=== PATIENT | female | born 1970 | race Caucasian/White ===

== ENCOUNTER 2018-05-24 12:37 | Emergency (ER) | payer BC ==
[2018-05-24 13:11] VITALS: BP 125/57
--- NOTE | 2018-05-24 13:22 | EDM.PDOC ---
ED HPI GENERAL MEDICAL PROBLEM - General Chief Complaint: Genitourinary Problem Stated Complaint: POSSIBLE KIDNEY INFECTION Time Seen by Provider: 05/24/18 13:00 Source of Information: Reports: Patient, Provider History Limitations: Reports: No Limitations - History of Present Illness INITIAL COMMENTS - FREE TEXT/NARRATIVE: 48-year-old female who woke up with flank pain this morning, went over to the clinic and was sent over to the emergency room. She did have a UA prior to being sent over that showed mild bacteria and WBCs present. No fevers or chills , some nausea and vomiting yesterday. Onset: Unknown/Unsure (Symptoms were present this morning when she woke up) Quality: Reports: Sharp, Stabbing Severity: Moderate Associated Symptoms: Reports: Other (Mild dysuria and urgency). Denies: Fever/ Chills, Shortness of Breath Bilateral Lower Back Pain Score (Numeric/FACES): 10 - Related Data Allergies Allergy/AdvReac Type Severity Reaction Status Date / Time cephalexin monohydrate Allergy Rash Verified 06/12/16 20:21 [From Keflex] doxycycline Allergy Hives Verified 06/12/16 20:21 Latex, Natural Rubber Allergy Rash Verified 06/12/16 20:21 morphine Allergy Rash Verified 06/12/16 20:21 Penicillins Allergy Rash Verified 06/12/16 20:21 tape Allergy Rash Uncoded 06/12/16 20:21 Home Meds: Home Meds Citalopram [Citalopram Hbr] 40 mg PO DAILY 05/14/13 [History] Multivitamin [Multivitamins] 1 each PO DAILY 05/14/13 [History] Spironolactone [Aldactone] 50 mg PO BID 05/14/13 [History] Aspirin 81 mg PO DAILY 05/24/18 [History] Ca Carbonate/Vitamin D3/Vit K [Calcium + D Soft Chewable Tab] 1 tab PO DAILY [History] Cyanocobalamin (Vitamin B12) [Vitamin B12] 1,000 mcg SL DAILY 05/24/18 [History] Multivitamin/Iron/Folic Acid [Centrum Adults Tablet] 1 tab PO DAILY 05/24/18 [ History] Triamcinolone Acetonide [Triamcinolone Acetonide 0.5%] 1 applic TOP DAILY PRN [History] Varenicline [Chantix] 1 tab PO DAILY 05/24/18 [History] Vitamin B Complex [B Complex] 1 tab PO DAILY 05/24/18 [History] Zolpidem Tartrate 10 mg PO BEDTIME 05/24/18 [History] atorvaSTATin [Lipitor] 10 mg PO BEDTIME 05/24/18 [History] metFORMIN HCl [Metformin HCl] 1,000 mg PO BID 05/24/18 [History] Past Medical History Other HEENT History: mass left side of face Cardiovascular History: Reports: Other (See Below) Other Cardiovascular History: born with enlarged heart Respiratory History: Reports: Sleep Apnea Gastrointestinal History: Reports: Gastritis Genitourinary History: Reports: Other (See Below) Other Genitourinary History: May 2011 hospitalized for kidney infection [employer] History: Reports: Polycystic Ovaries, Musculoskeletal History: Reports: Arthritis Neurological History: Reports: Migraines Other Neuro History: pinched right sciatic nerve Psychiatric History: Reports: Depression Endocrine/Metabolic History: Reports: Diabetes, Type II, Obesity/BMI 30+ Oncologic (Cancer) History: Reports: Other (See Below) Other Oncologic History: benign tumors removed from bilat neck - Infectious Disease History Infectious Disease History: Reports: Chicken Pox - Past Surgical History Cardiovascular Surgical History: Reports: None Respiratory Surgical History: Reports: None GI Surgical History: Reports: Appendectomy, Cholecystectomy, EGD Female Surgical History: Reports: Section, Hysterectomy, Salpingo- Oophorectomy Endocrine Surgical History: Reports: None Neurological Surgical History: Reports: None Musculoskeletal Surgical History: Reports: Carpal Tunnel Oncologic Surgical History: Reports: None Dermatological Surgical History: Reports: None Social & Family History - Tobacco Use Smoking Status *Q: Former Smoker Used Tobacco, but Quit: Yes Month/Year Tobacco Last Used: 03/27/2018 - Caffeine Use Caffeine Use: Reports: None - Recreational Drug Use Recreational Drug Use: No ED ROS GENERAL - Review of Systems Review Of Systems: See Below Constitutional: Reports: Malaise. Denies: Fever, Chills Respiratory: Denies: Shortness of Breath Cardiovascular: Denies: Chest Pain GI/Abdominal: Reports: Nausea : Reports: Flank Pain, Frequency, Urgency Musculoskeletal: Reports: Back Pain Skin: Reports: No Symptoms Neurological: Reports: No Symptoms Psychiatric: Reports: No Symptoms ED EXAM, GENERAL - Physical Exam Exam: See Below Exam Limited By: No Limitations General Appearance: Alert, Mild Distress Eye Exam: Bilateral Eye: Normal Inspection Head: Atraumatic Respiratory/Chest: No Respiratory Distress, Lungs Clear Cardiovascular: Regular Rate, Rhythm Back Exam: CVA Tenderness (R), CVA Tenderness (L), Paraspinal Tenderness Neurological: Alert, Oriented Psychiatric: Anxious Skin Exam: Warm, Dry Course - Vital Signs Last Recorded V/S: Last Vital Signs Temp 97.7 F 05/24/18 13:10 Pulse 75 05/24/18 13:10 Resp 20 05/24/18 13:10 BP 125/57 L 05/24/18 13:10 Pulse Ox 96 05/24/18 13:10 - Re-Assessments/Exams Free Text/Narrative Re-Assessment/Exam: 05/24/18 14:47 CT of the abdomen and pelvis was negative for acute findings. She'll be placed on Macrobid twice a day for the next 7 days and given 10 hydrocodone for extra pain control. A note for work tomorrow so she can stay home, rest, stay hydrated , and she should recheck in 2-3 days if not improving satisfactorily. Departure - Departure Time of Disposition: 14:50 Disposition: Home, Self-Care 01 Condition: Good Clinical Impression: UTI, Urinary tract infectious disease, Bilateral flank pain - Discharge Information Instructions: Urinary Tract Infection, Adult Referrals: Glenny Norton RN [Primary Care Provider] - Forms: ED Department Discharge Care Plan Goals: Take antibiotic twice daily, a regular dose of anti-inflammatory should help and add stronger pain medication as prescribed if needed. Consider rechecking in 2-3 days if not improving satisfactorily. Return sooner if worsening such as fever or increased pain despite medications.
--- NOTE | 2018-05-24 14:21 | CT ---
Abdomen Pelvis wo Cont CLINICAL HISTORY: Bilateral flank pain COMPARISON: 2016. TECHNIQUE: Axial tomographic images are obtained from the dome of the diaphragm to the pubic symphysis without IV contrast enhancement. No oral contrast was used. Auto dosage reduction and iterative reconstruction techniques employed. FINDINGS: The lung bases are clear. The liver is enlarged. There is diffuse fatty infiltration. The gallbladder has been removed. The spleen has a normal size and shape. The pancreas shows no mass or inflammatory change. The adrenal glands appear normal bilaterally. The kidneys are free of stones or hydronephrosis. The ureters have a normal course and caliber. The bladder is mildly distended. The aorta has a normal contour. There is no suspicious retroperitoneal adenopathy. The appendix is not definitively identified. IMPRESSION: Hepatomegaly with diffuse fatty infiltration Previous cholecystectomy No urinary stones or hydronephrosis
== END 2018-05-24 14:50 | disposition home or self-care (01) ==
LOC: JP.ED 12:37
DX: N39.0 Urinary tract infection, site not specified (principal); E11.9 Type 2 diabetes mellitus without complications; F32.9 Major depressive disorder, single episode, unspecified; Z88.1 Allergy status to other antibiotic agents; Z91.040 Latex allergy status; Z88.0 Allergy status to penicillin; Z88.5 Allergy status to narcotic agent; Z91.048 Other nonmedicinal substance allergy status; Z79.82 Long term (current) use of aspirin; Z79.899 Other long term (current) drug therapy; Z79.84 Long term (current) use of oral hypoglycemic drugs; Z87.891 Personal history of nicotine dependence
CPT/HCPCS: 74176; 74176-26; 99284-25

== ENCOUNTER 2018-07-17 17:22 | Emergency (ER) | payer BC ==
[2018-07-17 17:42] VITALS: BP 149/81
[2018-07-17] MEDS ORDERED: Ketorolac 30 MG/ML SDV IVPUSH ONE (18:11)
[2018-07-17] MEDS ORDERED: Ondansetron 4 MG/2 ML SDV IVPUSH ONE (18:11)
[2018-07-17] MEDS ORDERED: Sodium Chloride 0.9% 10 ML Syringe FLUSH PRN (18:12)
[2018-07-17] MEDS ORDERED: diphenhydrAMINE 50 MG/ML SDV IVPUSH ONE (18:12)
[2018-07-17] MEDS ORDERED: Sodium Chloride 0.9% 1,000 ML IV SCH (18:15)
[2018-07-17] MEDS ORDERED: Haloperidol Lactate 5 MG/ML SDV IVPUSH ONE (19:19)
[2018-07-17] MEDS ORDERED: Dexamethasone 4 MG/ML SDV IVPUSH ONE (19:19)
--- NOTE | 2018-07-17 20:43 | EDM.PDOC ---
ED HPI GENERAL MEDICAL PROBLEM - General Chief Complaint: Headache Stated Complaint: MIGRAINE Time Seen by Provider: 07/17/18 18:04 Source of Information: Reports: Patient, RN Notes Reviewed History Limitations: Reports: No Limitations - History of Present Illness INITIAL COMMENTS - FREE TEXT/NARRATIVE: 40-year-old female presents emergency department day complaint of headache, she has a known history of cluster headaches which usually tries to control with Imitrex on successful this time she has had daily headaches for the past couple of weeks she has no other functional complaints other than photophobia and nausea Left Frontal Headache Pain Score (Numeric/FACES): 10 - Related Data Allergies Allergy/AdvReac Type Severity Reaction Status Date / Time cephalexin monohydrate Allergy Rash Verified 07/17/18 17:48 [From Keflex] Latex, Natural Rubber Allergy Rash Verified 07/17/18 17:48 morphine Allergy Rash Verified 07/17/18 17:48 Penicillins Allergy Rash Verified 07/17/18 17:48 tape Allergy Rash Uncoded 07/17/18 17:48 Home Meds: Home Meds Citalopram [Citalopram Hbr] 40 mg PO DAILY 05/14/13 [History] Spironolactone [Aldactone] 50 mg PO BID 05/14/13 [History] Aspirin 81 mg PO DAILY 05/24/18 [History] Ca Carbonate/Vitamin D3/Vit K [Calcium + D Soft Chewable Tab] 1 tab PO DAILY [History] Cyanocobalamin (Vitamin B12) [Vitamin B12] 1,000 mcg SL DAILY 05/24/18 [History] Triamcinolone Acetonide [Triamcinolone Acetonide 0.5%] 1 applic TOP DAILY PRN [History] Varenicline [Chantix] 1 tab PO DAILY 05/24/18 [History] Vitamin B Complex [B Complex] 1 tab PO DAILY 05/24/18 [History] Zolpidem Tartrate 10 mg PO BEDTIME 05/24/18 [History] atorvaSTATin [Lipitor] 10 mg PO BEDTIME 05/24/18 [History] metFORMIN HCl [Metformin HCl] 1,000 mg PO BID 05/24/18 [History] Prenat Vit Comb.10/Iron/Fa/Dha [Vitafol-OB + DHA] 1 each PO BID 07/17/18 [ History] Past Medical History Other HEENT History: mass left side of face Cardiovascular History: Reports: Other (See Below) Other Cardiovascular History: born with enlarged heart Respiratory History: Reports: Sleep Apnea Gastrointestinal History: Reports: Gastritis Genitourinary History: Reports: Other (See Below) Other Genitourinary History: May 2011 hospitalized for kidney infection [employer] 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 History: Reports: Polycystic Ovaries, Musculoskeletal History: Reports: Arthritis Neurological History: Reports: Migraines (Cluster type) Other Neuro History: pinched right sciatic nerve Psychiatric History: Reports: Depression Endocrine/Metabolic History: Reports: Diabetes, Type II, Obesity/BMI 30+ Oncologic (Cancer) History: Reports: Other (See Below) Other Oncologic History: benign tumors removed from bilat neck - Infectious Disease History Infectious Disease History: Reports: Chicken Pox - Past Surgical History Cardiovascular Surgical History: Reports: None Respiratory Surgical History: Reports: None GI Surgical History: Reports: Appendectomy, Cholecystectomy, EGD Female Surgical History: Reports: Section, Hysterectomy, Salpingo- Oophorectomy Endocrine Surgical History: Reports: None Neurological Surgical History: Reports: None Musculoskeletal Surgical History: Reports: Carpal Tunnel Oncologic Surgical History: Reports: None Dermatological Surgical History: Reports: None Social & Family History - Tobacco Use Smoking Status *Q: Former Smoker Used Tobacco, but Quit: Yes Month/Year Tobacco Last Used: 2017 - Caffeine Use Caffeine Use: Reports: Coffee, Soda - Recreational Drug Use Recreational Drug Use: No ED ROS GENERAL - Review of Systems Review Of Systems: See Below Constitutional: Reports: No Symptoms. Denies: Fever Neurological: Reports: Headache - Physical Exam Exam: See Below Exam Limited By: No Limitations General Appearance: Alert, WD/WN, No Apparent Distress Eye Exam: Bilateral Eye: EOMI, Normal Fundi, PERRL Respiratory/Chest: No Respiratory Distress Course - Vital Signs Last Recorded V/S: Last Vital Signs Temp 97.7 F 07/17/18 17:48 Pulse 79 07/17/18 17:48 Resp 16 07/17/18 17:48 BP 149/81 H 07/17/18 17:48 Pulse Ox 96 07/17/18 17:48 - Orders/Labs/Meds Orders: Active Orders 24 hr Category Date Time Status Peripheral IV Care [RC] . DIRECTED Care 07/17/18 18:12 Active Sodium Chloride 0.9% [Normal Saline] 1,000 ml Med 07/17/18 18:15 Active IV ASDIRECTED Sodium Chloride 0.9% [Saline Flush] Med 07/17/18 18:12 Active 10 ml FLUSH ASDIRECTED PRN Peripheral IV Insertion Adult [OM.PC] Urgent Oth 07/17/18 18:11 Ordered Medication Orders Sodium Chloride (Normal Saline) 1,000 mls @ 999 mls/hr IV ASDIRECTED RICHARD Last Admin: 07/17/18 18:31 Dose: 999 mls/hr Sodium Chloride (Saline Flush) 10 ml FLUSH ASDIRECTED PRN PRN Reason: Keep Vein Open Last Admin: 07/17/18 18:34 Dose: 10 ml Meds: Medications Generic Name Dose Route Start Last Admin Trade Name Freq PRN Reason Stop Dose Admin Sodium Chloride 1,000 mls @ 999 mls/hr 07/17/18 18:15 07/17/18 18:31 Normal Saline IV 999 mls/hr ASDIRECTED RICHARD Administration Sodium Chloride 10 ml 07/17/18 18:12 07/17/18 18:34 Saline Flush FLUSH 10 ml ASDIRECTED PRN Administration Keep Vein Open Discontinued Medications Generic Name Dose Route Start Last Admin Trade Name Freq PRN Reason Stop Dose Admin Dexamethasone 4 mg 07/17/18 19:19 07/17/18 19:55 Dexamethasone IVPUSH 07/17/18 19:20 4 mg ONETIME ONE Administration Diphenhydramine HCl 25 mg 07/17/18 18:12 07/17/18 18:33 Benadryl IVPUSH 07/17/18 18:13 25 mg ONETIME ONE Administration Haloperidol Lactate 5 mg 07/17/18 19:19 07/17/18 19:55 Haldol IVPUSH 07/17/18 19:20 5 mg ONETIME ONE Administration Valproic Acid 500 mg/ Sodium 55 mls @ 50 mls/hr 07/17/18 19:19 07/17/18 19:56 Chloride IV 07/17/18 20:18 50 mls/hr ONETIME ONE Administration Ketorolac Tromethamine 30 mg 07/17/18 18:11 07/17/18 18:32 Toradol IVPUSH 07/17/18 18:12 30 mg ONETIME ONE Administration Ondansetron HCl 4 mg 07/17/18 18:11 07/17/18 18:32 Zofran IVPUSH 07/17/18 18:12 4 mg ONETIME ONE Administration Departure - Departure Time of Disposition: 20:42 Disposition: Home, Self-Care 01 Condition: Fair Clinical Impression: Cluster headache syndrome - Discharge Information Referrals: Glenny Norton RN [Primary Care Provider] - Additional Instructions: Continue with your regular medications, recommend follow-up with your primary care and discussion for consultation with neurology, call return to the emergency department worsening of symptoms - My Orders Last 24 Hours: My Active Orders 07/17/18 18:11 Peripheral IV Insertion Adult [OM.PC] Urgent 07/17/18 18:12 Peripheral IV Care [RC] . DIRECTED Sodium Chloride 0.9% [Saline Flush] 10 ml FLUSH ASDIRECTED PRN 07/17/18 18:15 Sodium Chloride 0.9% [Normal Saline] 1,000 ml IV ASDIRECTED - Assessment/Plan Last 24 Hours: My Active Orders 07/17/18 18:11 Peripheral IV Insertion Adult [OM.PC] Urgent 07/17/18 18:12 Peripheral IV Care [RC] . DIRECTED Sodium Chloride 0.9% [Saline Flush] 10 ml FLUSH ASDIRECTED PRN 07/17/18 18:15 Sodium Chloride 0.9% [Normal Saline] 1,000 ml IV ASDIRECTED Plan: Assessment Acuity = acute Site and laterality = cluster headache Etiology = unclear etiology Manifestations = photophobia, nausea Location of injury = Home Lab values = none Plan Good improvement with 1 L of fluids, Toradol, Zofran, Haldol, dexamethasone and valproic acid, recommend follow-up primary care and recommend referral to neurology This note was dictated using [employer] voice recognition software please call with any questions on syntax or grammar.
== END 2018-07-17 20:50 | disposition home or self-care (01) ==
LOC: JP.ED 17:22
DX: G44.009 Cluster headache syndrome, unspecified, not intractable (principal); E11.9 Type 2 diabetes mellitus without complications; F32.9 Major depressive disorder, single episode, unspecified; Z79.82 Long term (current) use of aspirin; Z79.899 Other long term (current) drug therapy; Z87.891 Personal history of nicotine dependence; Z79.84 Long term (current) use of oral hypoglycemic drugs; Z91.09 Other allergy status, other than to drugs and biological substances; Z88.0 Allergy status to penicillin; Z88.1 Allergy status to other antibiotic agents; Z91.040 Latex allergy status; Z88.5 Allergy status to narcotic agent
CPT/HCPCS: 96361; 96365; 96375; 99283; J1100; J1200; J1630; J1885; J2405; J7030; J7050; J3490

== ENCOUNTER 2018-07-24 05:31 | Inpatient (IN) | payer BC ==
[~2018-07-24 05:31] MED LIST: Scopolamine 1.5 MG Transdermal Patch TOP SCH
[2018-07-24] MEDS ORDERED: Celecoxib 200 MG Cap PO ONE (05:40)
[2018-07-24] MEDS ORDERED: Gabapentin 300 MG Cap PO ONE (05:40)
[2018-07-24] MEDS ORDERED: SUMAtriptan 6 MG/0.5 ML SDV SUBCUT ONE (06:17)
[2018-07-24] MEDS ORDERED: Dextrose 5%-Lactated Ringers 1,000 ML IV SCH ×2 (06:30→11:30)
[2018-07-24] MEDS ORDERED: Acetaminophen 500 MG Tab PO ONE (06:30)
[2018-07-24] MEDS ORDERED: cefOXitin 2 GM Vial ONE (06:51)
[2018-07-24] MEDS ORDERED: Albuterol/Ipratropium 3.0-0.5 MG/3 ML Neb Soln NEB ONE (07:05)
[2018-07-24] MEDS ORDERED: Levofloxacin/Dextrose 5%-Water 500 MG in Premix Bag 1 BAG IV ONE (07:10)
[2018-07-24] MEDS ORDERED: Lactated Ringers 1,000 ML ONE ×2 (07:12→12:20)
[2018-07-24] MEDS ORDERED: fentaNYL 250 MCG/5 ML SDV ONE (07:12)
[2018-07-24] MEDS ORDERED: Propofol 200 MG/20 ML SDV ONE (07:13)
[2018-07-24] MEDS ORDERED: Glycopyrrolate 0.2 MG/ML 5 ML MDV ONE (07:13)
[2018-07-24] MEDS ORDERED: Dexamethasone 4 MG/ML SDV ONE (07:13)
[2018-07-24] MEDS ORDERED: Neostigmine Methylsulfate 1 MG/ML 5 ML Syringe ONE (07:13)
[2018-07-24] MEDS ORDERED: Ondansetron 4 MG/2 ML SDV ONE (07:13)
[2018-07-24] MEDS ORDERED: Rocuronium 50 MG/5 ML Vial ONE (07:13)
[2018-07-24] MEDS ORDERED: Succinylcholine 200 MG/10 ML MDV ONE (07:13)
[2018-07-24] MEDS ORDERED: Ropivacaine 54 ML, Dexamethasone 8 MG, EPINEPHrine 0.4 MG, Sodium Chloride 0.9% 23.6 ML NERVRT SCH ×4 (07:30)
[2018-07-24] MEDS ORDERED: Lidocaine 2% 100 MG/5 ML Syringe IVPUSH SCH (07:30)
[2018-07-24] MEDS ORDERED: Ketamine 50 MG in Sodium Chloride 0.9% 49.5 ML IV SCH (07:30)
[2018-07-24] MEDS ORDERED: Ketamine 500 MG/5 ML MDV IV SCH (07:30)
[2018-07-24] MEDS ORDERED: hydrOXYzine HCl 100 MG/2 ML SDV IM ONE (09:54)
[2018-07-24] MEDS: Tranexamic Acid 1,000 MG in Sodium Chloride 0.9% 50 ML IV SCH ×3 (09:54→12:25)
[2018-07-24] MEDS ORDERED: fentaNYL 100 MCG/2 ML SDV IVPUSH ONE ×2 (09:54→10:16)
[2018-07-24] MEDS: HYDROmorphone 1 MG/ML Syringe IV PRN ×4 (11:21→22:41)
[2018-07-24] MEDS ORDERED: hydrOXYzine HCl 100 MG/2 ML SDV IM PRN (11:23)
[2018-07-24] MEDS ORDERED: Ondansetron 4 MG/2 ML SDV IVPUSH PRN (11:23)
[2018-07-24] MEDS ORDERED: Labetalol 20 MG/4 ML Syringe IVPUSH PRN (11:23)
[2018-07-24] MEDS ORDERED: Metoclopramide 10 MG/2 ML SDV IVPUSH PRN (11:23)
[2018-07-24] MEDS: Lidocaine 0.4%/D5W 2 GM/500 ML BAG IV SCH (11:25)
[2018-07-24] MEDS: Gabapentin 250 MG/5 ML Solution ML 470 ML Bottle PO SCH ×3 (11:55→20:20)
[2018-07-24] MEDS: Insulin Lispro 100 Unit/ML 3 ML KwikPen SUBCUT PRN ×2 (12:01→17:16)
[2018-07-24] MEDS: Lactated Ringers 1,000 ML IV SCH ×2 (12:10→20:23)
[2018-07-24] MEDS: Pantoprazole 40 MG Vial IVPUSH SCH (13:08)
[2018-07-24] MEDS: Acetaminophen Soln 650 MG/20.3 ML UD Cup PO SCH ×2 (14:47→20:20)
[2018-07-24] MEDS ORDERED: MVI, Adult with Vitamin K 10 ML, Thiamine 200 MG, Chromium/Copper/Mang/Selen/Zn 1 ML in... IV SCH ×4 (16:00)
[2018-07-24] MEDS: HYDROmorphone 0.5 MG/0.5 ML Syringe IVPUSH PRN (16:24)
[2018-07-24] MEDS: diphenhydrAMINE 50 MG/ML SDV IVPUSH PRN ×2 (19:10→23:04)
[2018-07-24] MEDS: Heparin Sodium 5,000 Units/ML Vial SUBCUT SCH (20:20)
[2018-07-25] MEDS: HYDROmorphone 0.5 MG/0.5 ML Syringe IVPUSH PRN (02:03)
[2018-07-25] MEDS: Acetaminophen Soln 650 MG/20.3 ML UD Cup PO SCH ×4 (02:03→19:45)
[2018-07-25] MEDS ORDERED: Iohexol 647 MG/ML 50 ML SDV PO STA (03:05)
[2018-07-25] MEDS: diphenhydrAMINE 50 MG/ML SDV IVPUSH PRN (03:57)
[2018-07-25] MEDS: Insulin Lispro 100 Unit/ML 3 ML KwikPen SUBCUT PRN (04:31)
--- NOTE | 2018-07-25 04:33 | CRLCR ---
INDICATION: Evaluate for leak following [place]-en-Y. COMPARISON: None available. FINDINGS: Two erect views of the abdomen are obtained with the ingestion of oral contrast. The film obtained immediately upon ingestion of the contrast shows satisfactory filling of a small gastric pouch with no sign of extravasation of contrast. A film obtained 19 minutes later shows prompt passage of the contrast out of the gastric pouch and through the nondilated small-bowel to reach the distal jejunum. There is no sign of any extravasation of contrast. A Sandro-Mckeon drain is seen in the left upper quadrant. Clips are seen in the right upper quadrant consistent with cholecystectomy There is no sign of distention of the small bowel or colon to suggest obstruction or ileus. There is no sign of free air or distinct mass. The osseous structures are normal in appearance for the patient`s age. IMPRESSION: Prompt passage of ingested contrast out of the gastric pouch and through the nondilated proximal and mid small bowel. No sign of any extravasation of contrast. Dictated by Isak Luo MD @ Jul 25 2018 4:30AM Signed by Dr. Isak Luo @ Jul 25 2018 4:32AM
[2018-07-25] MEDS: Levofloxacin/Dextrose 5%-Water 500 MG in Premix Bag 1 BAG IV SCH (05:39)
[2018-07-25] MEDS: Lactated Ringers 1,000 ML IV SCH (05:39)
[2018-07-25] MEDS: HYDROmorphone 1 MG/ML Syringe IV PRN (07:37)
[2018-07-25] MEDS: Lidocaine 0.4%/D5W 2 GM/500 ML BAG IV SCH (07:47)
[2018-07-25] MEDS: Heparin Sodium 5,000 Units/ML Vial SUBCUT SCH ×2 (07:54→19:46)
[2018-07-25] MEDS ORDERED: Ondansetron 4 MG Tab.DIS PO PRN (07:58)
[2018-07-25] MEDS: Celecoxib 200 MG Cap PO SCH (07:59)
[2018-07-25] MEDS ORDERED: Lactated Ringers 1,000 ML IV SCH (08:00)
[2018-07-25] MEDS ORDERED: hydrOXYzine HCl 25 MG Tab PO PRN (08:02)
[2018-07-25] MEDS ORDERED: diphenhydrAMINE 25 MG Cap PO PRN (08:04)
[2018-07-25] MEDS: Gabapentin 250 MG/5 ML Solution ML 470 ML Bottle PO SCH ×3 (08:49→21:28)
[2018-07-25] MEDS: Spironolactone 25 MG Tab PO SCH (09:20)
[2018-07-25] MEDS: Citalopram 20 MG Tab PO SCH (09:27)
[2018-07-25] MEDS: SCOPOLAMINE PATCH CHECK TOP SCH (09:30)
--- NOTE | 2018-07-25 09:32 | PN ---
DATE OF SERVICE: 07/25/2018 SUBJECTIVE: Angelique is a postoperative day 1, her upper GI was normal. Blood sugars have been running 214, 265, 193 and 221. Tolerating step 1 gastric bypass diet. She got in 1120. REVIEW OF SYSTEMS: Remainder of review of systems negative for any pertinent positives and negatives. OBJECTIVE: GENERAL: Angelique Damon is a 48-year-old female. VITAL SIGNS: TPR is 97.4, 74, 16. Blood pressure is 115/58. HEENT: Negative. NECK: Supple. HEART: Regular rate and rhythm. LUNGS: Clear. ABDOMEN: Dressings dry and intact. Abdominal binder is on. EXTREMITIES: Without peripheral edema. 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 Date of surgery, 07/23/2018. PLAN: 1. Discontinue D5 LR. 2. Change IV solution to lactated Ringer's 100 mL per hour, may saline lock IV if oral intake 900 mL. 3. Step 2 gastric bypass diet without cereal. 4. Dressing off, may shower. 5. Discontinue telemetry and continuous pulse ox. 6. Celexa 40 mg p.o. daily, Atarax 25 mg q.4 hours p.r.n. pain, Zofran ODT 4 mg every 4 hours p.r.n. nausea, Aldactone 50 mg p.o. daily, sumatriptan 100 mg p.o. use as directed for migraine headaches, Chantix 1 mg p.o. daily, and scheduled Ambien 10 mg p.o. at bedtime. 7. Good pulmonary toilet. 8. We will evaluate p.r.n. or in a.m. Caprice Valadez PA-C /[id number]
[2018-07-25] MEDS: hydrOXYzine HCl 25 MG Tab PO PRN ×2 (14:53→19:44)
[2018-07-25] MEDS: Pantoprazole 40 MG Delayed-Release Granules 1 Packet PO SCH (15:58)
[2018-07-25] MEDS: Pantoprazole 40 MG Vial IVPUSH SCH (16:45)
[2018-07-25] MEDS ORDERED: Zolpidem 5 MG Tab PO SCH (21:00)
[2018-07-26] MEDS: hydrOXYzine HCl 25 MG Tab PO PRN ×2 (01:42→06:27)
[2018-07-26] MEDS: Acetaminophen Soln 650 MG/20.3 ML UD Cup PO SCH ×2 (01:43→07:03)
[2018-07-26] MEDS: Levofloxacin/Dextrose 5%-Water 500 MG in Premix Bag 1 BAG IV SCH (06:26)
[2018-07-26 06:59] VITALS: BP 108/52
[2018-07-26] MEDS: Celecoxib 200 MG Cap PO SCH (07:03)
[2018-07-26] MEDS: Heparin Sodium 5,000 Units/ML Vial SUBCUT SCH (07:03)
[2018-07-26] MEDS: Citalopram 20 MG Tab PO SCH (08:31)
[2018-07-26] MEDS: Pantoprazole 40 MG Delayed-Release Granules 1 Packet PO SCH (08:31)
[2018-07-26] MEDS: Spironolactone 25 MG Tab PO SCH (08:31)
--- NOTE | 2018-07-26 08:31 | DISCH ---
ADMISSION DIAGNOSES: 1. Morbid obesity, BMI 43. 2. Type 2 diabetes without complication. 3. Cluster migraine headaches. 4. Obstructive sleep apnea. 5. Depression. 6. Tobacco use disorder, in remission, on Chantix. 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 DATE OF SURGERY: 07/24/2018. SURGEON: Aurelio Willis MD. HISTORY: Angelique Damon is a 48-year-old female with longstanding history of morbid obesity and increasing comorbidities. After preoperative evaluation and discussion of possible risks and possible complications, she wished to proceed with surgical procedure. HOSPITAL COURSE: Date of surgery is 07/24/2018. She had no operative complications. On postoperative day #1, her upper GI was normal. She was started on step 2 gastric bypass diet. Her home medications and blood sugars were checked four times daily and gradually decreased. She was not given any of her diabetic medications to cover her blood sugars. On postoperative day 2, blood sugars were 152, 180, 157, and 134. Activity was good. Oral intake 1570. Urine output 3775. She was able to be discharged to home without any complications. PHYSICAL EXAMINATION: GENERAL: Angelique Damon is a 48-year-old female. VITAL SIGNS: Height is 5 feet 3 inches, weight is 237 pounds and 6 ounces, BMI is 42. TPR 97, 66, 16, blood pressure 108/52. HEENT: Negative. NECK: Supple. HEART: Regular rate and rhythm. LUNGS: Clear. ABDOMEN: Sutures intact. Incisions look good. ELIGIO drain is intact. It will be removed prior to discharge and 4x4s will be placed over ELIGIO drain site. Abdominal binder has been on. EXTREMITIES: Without peripheral edema. DISPOSITION: Discharged home. CONDITION: Stable and improving. FOLLOWUP APPOINTMENT: Caprice Valadez PA-C, 08/01/2018 at 11:00 a.m. HOME MEDICATIONS: 1. Tylenol 650 mg oral q.6 hours p.r.n. pain. 2. Celebrex 200 mg oral daily #14. 3. Omeprazole 40 mg oral at bedtime to take with Imitrex to avoid getting ulcer, #30. 4. Zofran ODT 4 mg every 4 hours p.r.n. nausea #30. She is to resume taking her home medications, 1. Citalopram 40 mg oral daily. 2. Sumatriptan 100 mg oral one time p.r.n. migraine headaches. 3. Aldactone. 4. Spironolactone 50 mg oral daily. 5. Triamcinolone acetonide one applicator p.r.n. rash, apply topical. 6. Chantix one tablet daily. 7. Zolpidem tartrate 10 mg oral at bedtime. 8. Lipitor 10 mg at bedtime. 9. Stop taking all vitamins and supplements until first postoperative appointment. Discontinue metformin. DIET: Step 2 gastric bypass diet with no cereal until 08/08/2018. ACTIVITY: No lifting greater than 10 pounds for 2 weeks. Other activity, walk at least 6 times daily inside your home. Driving, do not drive for one week. Shower/bathing, may shower. Notify provider if any fever, increased pain, nausea, or vomiting. Keep site clean and dry. Wear abdominal binder for two weeks and then as tolerated. SPECIAL INSTRUCTION: 1. Use incentive spirometer 10 times every hour while awake for 1 week. 2. Keep record of what you are eating and drinking every day and bring to clinic appointment. 3. Check blood sugars three times a day and record readings and bring to clinic appointment.
[2018-07-26] MEDS: SCOPOLAMINE PATCH CHECK TOP SCH (08:32)
[2018-07-26] MEDS: Gabapentin 250 MG/5 ML Solution ML 470 ML Bottle PO SCH (08:37)
[2018-07-26] MEDS ORDERED: Cyanocobalamin (Vitamin B12) 1,000 MCG/ML SDV IM ONE (09:00)
--- NOTE | 2018-08-02 08:34 | OR ---
DATE OF PROCEDURE: 07/24/2018 PREOPERATIVE DIAGNOSIS: Morbid obesity. POSTOPERATIVE DIAGNOSES: 1. Morbid obesity. 2. Marked hepatomegaly. 3. Immobile small bowel secondary to fatty infiltration of mesentery. 4. Paraesophageal diaphragmatic hernia. 5. Mediastinal lipoma. OPERATIVE PROCEDURES: 1. Laparoscopic Dayton-en-Y gastric bypass with long-limb gastroenterostomy (09421). 2. Isaac-Cut needle liver biopsy (84762). 3. Repair of paraesophageal diaphragmatic hernia (91282). 4. Excision of mediastinal lipoma (23382). 5. Small bowel resection (88022). ANESTHESIA: General. ASSISTANTS: Caprice Valadez PA-C, and KATHIA Briceno. INDICATION FOR PROCEDURE: This is a 48-year-old female with longstanding morbid obesity and increasingly significant comorbidities. After preoperative evaluation and discussion, she wished to proceed with a gastric bypass procedure. Potential risks of the procedure including bleeding, infection, leaks from various GI tract closures, problems with bowel obstruction over time, as well as the possibility of cardiopulmonary, septic, or hemorrhagic complications leading to were all discussed, and the patient wishes to proceed. DETAILS OF PROCEDURE: The patient was taken to the operating room and placed in a supine position. After general endotracheal anesthesia was induced, she was converted to a lithotomy position, and the abdomen was prepped and draped. At 15 cm inferior and 5 cm left of the xiphoid process, a transverse incision was made, and the peritoneal cavity entered under direct vision with an Optiview trocar and inflated to 15 mmHg pressure of CO2. Laparoscope was reinserted and no underlying trocar insertion site injuries were seen. Following this, five additional trocars were placed across the upper and mid abdomen. Bilateral transversus abdominis plane blocks were placed. The patient was noted to have marked hepatomegaly with the liver being grossly fatty infiltrated. Isaac-Cut needle biopsies were obtained from the left lobe of liver, and minimal bleeding from the biopsy sites was controlled with electrocautery. The omentum was then divided in the midline at the level of the transverse colon. This allowed identification of the small bowel to the ligament of Treitz. Small bowel was then traced out 200 cm distal to that point, where it was divided transversely with a MINDI stapler. Small bowel was noted to have marked fatty infiltration of the mesentery making it quite immobile. This would threaten the gastrojejunostomy due to the immobility of the small bowel. Therefore, roughly 10 cm of the biliopancreatic limb of the small bowel was then resected. The underlying mesentery in that area was divided with Harmonic scalpel, and the bowel divided with additional MINDI staple line. This would facilitate much greater mobility of the jejunojejunostomy for subsequent mobilization of the [place] limb up to the level of the gastric pouch with minimal tension. Once the small bowel resection was completed, the small bowel was then traced out 150 cm further distal to the point of division where the [id number] enteroenterostomy was accomplished with an internal firing of the Endo-MINDI 60-mm stapler. Common opening was then closed transversely with same stapler, angles anastomosed, and mesenteric defect approximated with some 3-0 Vicryl stitch, along with fibrin sealant. The divided end of the [place] limb was then from the mesentery for additional few centimeters, which allowed it to be mobilized up to the level of the gastroesophageal junction without significant tension. The liver was then retracted anteriorly, and the patient was noted to have a moderate-sized paraesophageal diaphragmatic hernia with prolapse of perigastric fat and gastric fundus in a plane anterior to the course of the esophagus. This was reduced, and the peritoneum overlying it was incised and reflected downward. During the course of the dissection, a mediastinal lipoma, roughly the size of a ping-pong ball, was encountered. This was excised and sent for pathologic review. Removal of the lipoma made a much more satisfactory closure, which was accomplished with 0 Ethibond sutures reinforced with PTFE pledgets. The gastrointestinal balloon catheter was then inflated to 15 mL and pulled up snuggly against the EG junction. Gastric wall over the apex of balloon was then marked with electrocautery and balloon catheter deflated and pulled up from the esophagus. The lesser omental tissue was then divided adjacent to the gastric cardia, and pouch formation was initiated with a transverse firing of the MINDI stapler at the level of the cauterized leigh ann in the gastric cardia. Pouch was then completed with two additional firings of MINDI stapler up to and through the angle of His. Upon completion of the pouch, both staple lines were noted to be intact. The anvil of a 25-mm EEA stapler was attached to Robbins sump type tube. The latter was brought down through the mouth and taken out through a small opening in the gastric pouch, which then allowed the anvil likewise to be pulled down to within the gastric pouch. Divided end of the [place] limb was then opened, and the main body EEA stapler was passed several centimeters into the lumen of small bowel, brought up the anvil and united with it, thus creating the gastrojejunostomy. Upon removal of the stapler, double donuts of mucosa were noted within it. Small bowel was closed off with a vascular staple line. Gastrojejunostomy was reinforced with some 3-0 Vicryl seromuscular stitch, along with fibrin sealant. Leak test was accomplished with injection of 120 mL of air in the gastric pouch while submerged within cefoxitin-containing saline solution. No leaks were identified. Two Sandro-Mckeon drains were then placed adjacent to the gastric cardia and taken out through subcostal trocar sites. No further problems were noted. Trocars were removed, and the peritoneal cavity deflated. Incisions were closed with some 4-0 Vicryl skin stitch, and drains were also affixed with the same stitch. The patient was taken to the recovery room in a satisfactory condition. One element in this case is that the patient tended to have quite a bit of oozing from raw surfaces, and near the end of the case, we decided to give the patient 1 g of tranexamic acid and then follow that up with an additional dose of tranexamic acid 3 hours from now to minimize postoperative bleeding issues. Physician assistant restaurant general manager, Caprice Valadez, played an essential role in assisting in this case, helping to position the patient, retract structures as needed, as well as suturing and cutting sutures when indicated. Her presence improved patient safety and decreased the operative time. Aurelio Willis MD /[id number]
== END 2018-07-26 09:40 | disposition home or self-care (01) | DRG 403 ==
LOC: JP.SDSSCHI 05:31 → JP.SDS 05:31 → JP.MS 10:50 → EDSTATUS 11:30
PROVIDERS: ADMIT Surgery; ATTEND Surgery
PROC: 0D164ZA Bypass Stomach to Jejunum, Percutaneous Endoscopic Approach (ICD-10-PCS; principal; 2018-07-24)
PROC: 0FB24ZX Excision of Left Lobe Liver, Percutaneous Endoscopic Approach, Diagnostic (ICD-10-PCS; 2018-07-24)
PROC: 0DB94ZZ Excision of Duodenum, Percutaneous Endoscopic Approach (ICD-10-PCS; 2018-07-24)
PROC: 0BQT4ZZ Repair Diaphragm, Percutaneous Endoscopic Approach (ICD-10-PCS; 2018-07-24)
PROC: 0WBC4ZX Excision of Mediastinum, Percutaneous Endoscopic Approach, Diagnostic (ICD-10-PCS; 2018-07-24)
DX: E66.01 Morbid (severe) obesity due to excess calories (principal); Z68.41 Body mass index [BMI] 40.0-44.9, adult; R16.0 Hepatomegaly, not elsewhere classified; G47.33 Obstructive sleep apnea (adult) (pediatric); F32.9 Major depressive disorder, single episode, unspecified; K44.9 Diaphragmatic hernia without obstruction or gangrene; D17.4 Benign lipomatous neoplasm of intrathoracic organs; K59.8 Other specified functional intestinal disorders; K76.0 Fatty (change of) liver, not elsewhere classified; E11.9 Type 2 diabetes mellitus without complications; G43.809 Other migraine, not intractable, without status migrainosus; L68.0 Hirsutism; E28.2 Polycystic ovarian syndrome; E04.9 Nontoxic goiter, unspecified; K29.70 Gastritis, unspecified, without bleeding; K21.9 Gastro-esophageal reflux disease without esophagitis; Z79.82 Long term (current) use of aspirin; Z88.5 Allergy status to narcotic agent; Z79.899 Other long term (current) drug therapy; Z88.8 Allergy status to other drugs, medicaments and biological substances; Z88.1 Allergy status to other antibiotic agents; Z79.84 Long term (current) use of oral hypoglycemic drugs; Z90.710 Acquired absence of both cervix and uterus; Z87.891 Personal history of nicotine dependence; Z91.040 Latex allergy status
CPT/HCPCS: 36415; 74240; 81025; 82962; 86850; 86900; 86901; 88304; 88307; 88313; 94640; A9270-GY; C9113; J0171; J0330; J0694; J1100; J1170; J1200; J1644; J1815; J1815-GY; J1956; J2001; J2405; J2704; J2710; J2795; J3010; J3030; J3410; J3411; J3420; J3490; J7030; J7042; J7050; J7120; J7620-GY; Q9967

== ENCOUNTER 2018-08-12 12:32 | Observation (INO) | payer BC ==
[2018-08-12] MEDS ORDERED: Lactated Ringers 1,000 ML IV ONE (14:30)
[2018-08-12] MEDS ORDERED: Sodium Chloride 0.9% 10 ML Syringe FLUSH PRN (14:30)
--- NOTE | 2018-08-12 14:34 | EDM.PDOC ---
ED HPI GENERAL MEDICAL PROBLEM - General Chief Complaint: Gastrointestinal Problem Stated Complaint: POST SURGERY COMPLICATIONS Time Seen by Provider: 08/12/18 14:20 Source of Information: Reports: Patient, Family, RN Notes Reviewed History Limitations: Reports: No Limitations - History of Present Illness INITIAL COMMENTS - FREE TEXT/NARRATIVE: 40-year-old female presents emergency department today complaint of difficulty swallowing she is postop Dayton-en-Y 3 weeks prior states he has been in well and then this afternoon when she was drinking some water developed a burning sensation and difficulty swallowing and then ended up with 2 bouts of emesis. - Related Data Allergies Allergy/AdvReac Type Severity Reaction Status Date / Time cephalexin monohydrate Allergy Rash Verified 08/12/18 14:10 [From Keflex] Latex, Natural Rubber Allergy Rash Verified 08/12/18 14:10 morphine Allergy Rash Verified 08/12/18 14:10 Penicillins Allergy Hives Verified 08/12/18 14:10 tape Allergy Rash Uncoded 08/12/18 14:10 Home Meds: Home Meds Citalopram [Citalopram HBr] 40 mg PO DAILY 05/14/13 [History] Spironolactone [Aldactone] 50 mg PO DAILY 05/14/13 [History] Triamcinolone Acetonide [Triamcinolone Acetonide 0.5%] 1 applic TOP DAILY PRN [History] Zolpidem Tartrate 10 mg PO BEDTIME 05/24/18 [History] SUMAtriptan 100 mg PO ONETIME 07/20/18 [History] Omeprazole 40 mg PO BEDTIME PRN #30 cap.sr 07/26/18 [Rx] Past Medical History HEENT History: Reports: Other (See Below) Other HEENT History: mass left side of face. 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: Reports: Polycystic Ovaries, Musculoskeletal History: Reports: Arthritis Neurological History: Reports: Migraines Other Neuro History: pinched right sciatic nerve Psychiatric History: Reports: Depression Endocrine/Metabolic History: Reports: Diabetes, Type II, Obesity/BMI 30+ Oncologic (Cancer) History: Reports: Other (See Below) Other Oncologic History: benign tumors removed from bilat neck - Infectious Disease History Infectious Disease History: Reports: Chicken Pox - Past Surgical History Cardiovascular Surgical History: Reports: None Respiratory Surgical History: Reports: None GI Surgical History: Reports: Appendectomy, Bariatric Procedure, Cholecystectomy , EGD Other GI Surgeries/Procedures: status post rny 07/24/18 Female Surgical History: Reports: Section, Hysterectomy, Salpingo- Oophorectomy Endocrine Surgical History: Reports: None Neurological Surgical History: Reports: None Musculoskeletal Surgical History: Reports: Carpal Tunnel Oncologic Surgical History: Reports: None Dermatological Surgical History: Reports: None Social & Family History - Tobacco Use Smoking Status *Q: Former Smoker Used Tobacco, but Quit: Yes Month/Year Tobacco Last Used: 18 - Caffeine Use Caffeine Use: Reports: Coffee ED ROS GENERAL - Review of Systems Review Of Systems: See Below Constitutional: Reports: No Symptoms HEENT: Reports: No Symptoms Respiratory: Reports: No Symptoms Cardiovascular: Reports: No Symptoms GI/Abdominal: Reports: Abdominal Pain, Nausea (Epigastric region), Vomiting ED EXAM, GI/ABD - Physical Exam Exam: See Below Exam Limited By: No Limitations General Appearance: Alert, WD/WN, No Apparent Distress Respiratory/Chest: No Respiratory Distress, Lungs Clear, Normal Breath Sounds, No Accessory Muscle Use, Chest Non-Tender Cardiovascular: Regular Rate, Rhythm, No Murmur GI/Abdominal Exam: Soft, Non-Tender Course - Vital Signs Last Recorded V/S: Last Vital Signs Temp 96.8 F 08/12/18 14:18 Pulse 66 08/12/18 14:18 Resp 16 08/12/18 14:18 BP 110/69 08/12/18 14:18 Pulse Ox 96 08/12/18 14:18 - Orders/Labs/Meds Orders: Active Orders 24 hr Category Date Time Status Peripheral IV Care [RC] . DIRECTED Care 08/12/18 14:30 Ordered CBC WITH AUTO DIFF [HEME] Stat Lab 08/12/18 14:29 Ordered COMPREHENSIVE METABOLIC PN,CMP [CHEM] Stat Lab 08/12/18 14:29 Ordered LACTIC ACID [CHEM] Stat Lab 08/12/18 14:29 Ordered Lactated Ringers [Ringers, Lactated] 1,000 ml Med 08/12/18 14:30 Ordered IV BOLUS Sodium Chloride 0.9% [Saline Flush] Med 08/12/18 14:30 Ordered 10 ml FLUSH ASDIRECTED PRN Peripheral IV Insertion Adult [OM.PC] Urgent Oth 08/12/18 14:30 Ordered Departure - Departure Time of Disposition: 14:33 Disposition: Refer to Observation Condition: Fair Clinical Impression: Dysphagia Qualifiers: Dysphagia type: esophageal phase Qualified Code(s): R13.10 - Dysphagia, unspecified - Discharge Information Referrals: Yue Vuong MD [Primary Care Provider] - - My Orders Last 24 Hours: My Active Orders 08/12/18 14:29 CBC WITH AUTO DIFF [HEME] Stat COMPREHENSIVE METABOLIC PN,CMP [CHEM] Stat LACTIC ACID [CHEM] Stat 08/12/18 14:30 Peripheral IV Care [RC] . DIRECTED Lactated Ringers [Ringers, Lactated] 1,000 ml IV BOLUS Sodium Chloride 0.9% [Saline Flush] 10 ml FLUSH ASDIRECTED PRN Peripheral IV Insertion Adult [OM.PC] Urgent - Assessment/Plan Last 24 Hours: My Active Orders 08/12/18 14:29 CBC WITH AUTO DIFF [HEME] Stat COMPREHENSIVE METABOLIC PN,CMP [CHEM] Stat LACTIC ACID [CHEM] Stat 08/12/18 14:30 Peripheral IV Care [RC] . DIRECTED Lactated Ringers [Ringers, Lactated] 1,000 ml IV BOLUS Sodium Chloride 0.9% [Saline Flush] 10 ml FLUSH ASDIRECTED PRN Peripheral IV Insertion Adult [OM.PC] Urgent Plan: Assessment Acuity = acute Site and laterality = dysphagia complicated patient with recent gastric bypass surgery Etiology = probably surgical complication Manifestations = none Location of injury = Home Lab values = pending Plan Called discussed case Dr. Willis at 1430 recommended admission he will evaluate patient hospital plan for EGD with dilation tomorrow morning This note was dictated using Kivo voice recognition software please call with any questions on syntax or grammar.
[2018-08-12] MEDS ORDERED: Ondansetron 4 MG/2 ML SDV IVPUSH ONE (14:37)
[2018-08-12] MEDS ORDERED: fentaNYL 100 MCG/2 ML SDV IVPUSH ONE (14:37)
[2018-08-12] MEDS ORDERED: fentaNYL 100 MCG/2 ML SDV IVPUSH PRN (14:38)
[2018-08-12] MEDS ORDERED: Ondansetron 4 MG/2 ML SDV IVPUSH PRN (14:38)
[2018-08-12] MEDS ORDERED: Pantoprazole 40 MG Tab.CR PO PRN (14:39)
[2018-08-12] MEDS: Pantoprazole 40 MG Vial ONE ×2 (16:08→16:51)
[2018-08-12] MEDS: Lactated Ringers 1,000 ML IV ONE ×2 (16:23→20:25)
[2018-08-12] MEDS ORDERED: Pantoprazole 40 MG Vial IVPUSH ONE (16:27)
[2018-08-12] MEDS: Calcium Carbonate 500 MG Tab.Chew PO PRN ×2 (18:43→22:26)
[2018-08-12] MEDS: fentaNYL 100 MCG/2 ML SDV IVPUSH PRN ×2 (18:44→22:26)
[2018-08-12] MEDS ORDERED: Zolpidem 5 MG Tab PO SCH (21:00)
[2018-08-13] MEDS: fentaNYL 100 MCG/2 ML SDV IVPUSH PRN ×3 (00:12→04:25)
[2018-08-13] MEDS ORDERED: Glycopyrrolate 0.2 MG/ML 2 ML SDV IVPUSH ONE (07:01)
[2018-08-13] MEDS ORDERED: hydrOXYzine HCl 100 MG/2 ML SDV IM PRN (07:04)
[2018-08-13] MEDS ORDERED: Ketorolac 60 MG/2 ML SDV IM ONE (07:30)
--- NOTE | 2018-08-13 07:30 | PCM.HP ---
H&P History of Present Illness - General Date of Service: 08/13/18 Admit Problem/Dx: Admission Diagnosis/Problem Admission Diagnosis/Problem Dysphagia Source of Information: Patient History Limitations: Reports: No Limitations - History of Present Illness Initial Comments - Free Text/Narative: Angelique states she drank a protein shake yesterday morning and it got stuck. She states she threw up twice and then came to the ED at [facility] and was admitted for observation. She is NPO for an EGD with possible dilatation. Symptom Onset Date: 08/12/18 Duration of Symptoms: Reports: Hour(s): Location: Reports: Abdomen Quality: Reports: Ache, Pressure Improves with: Reports: Medication (patient has been getting Fentanyl while in the hospital. ) Worsens with: Reports: None Associated Symptoms: Reports: Headaches (chronic migraine headaches uncontrolled with Imitrex ) Epigastric Pain Score (Numeric/FACES): 4 - Related Data Allergies/Adverse Reactions: Allergies Allergy/AdvReac Type Severity Reaction Status Date / Time cephalexin monohydrate Allergy Rash Verified 08/12/18 14:10 [From Keflex] Latex, Natural Rubber Allergy Rash Verified 08/12/18 14:10 morphine Allergy Rash Verified 08/12/18 14:10 Penicillins Allergy Hives Verified 08/12/18 14:10 tape Allergy Rash Uncoded 08/12/18 14:10 Home Medications: Home Meds Citalopram [Citalopram HBr] 40 mg PO DAILY 05/14/13 [History] Spironolactone [Aldactone] 50 mg PO DAILY 05/14/13 [History] Triamcinolone Acetonide [Triamcinolone Acetonide 0.5%] 1 applic TOP DAILY PRN [History] Zolpidem Tartrate 10 mg PO BEDTIME 05/24/18 [History] SUMAtriptan 100 mg PO ONETIME 07/20/18 [History] Omeprazole 40 mg PO BEDTIME PRN #30 cap.sr 07/26/18 [Rx] Past Medical History HEENT History: Reports: Other (See Below) Other HEENT History: mass left side of face. 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: Reports: Polycystic Ovaries, Musculoskeletal History: Reports: Arthritis Neurological History: Reports: Migraines Other Neuro History: pinched right sciatic nerve Psychiatric History: Reports: Depression Endocrine/Metabolic History: Reports: Diabetes, Type II, Obesity/BMI 30+ Immunologic History: Reports: None Oncologic (Cancer) History: Reports: Other (See Below) Other Oncologic History: benign tumors removed from bilat neck - Infectious Disease History Infectious Disease History: Reports: Chicken Pox - Past Surgical History Cardiovascular Surgical History: Reports: None Respiratory Surgical History: Reports: None GI Surgical History: Reports: Appendectomy, Bariatric Procedure, Cholecystectomy , EGD Other GI Surgeries/Procedures: status post rny 07/24/18 Female Surgical History: Reports: Section, Hysterectomy, Salpingo- Oophorectomy Endocrine Surgical History: Reports: None Neurological Surgical History: Reports: None Musculoskeletal Surgical History: Reports: Carpal Tunnel Oncologic Surgical History: Reports: None Dermatological Surgical History: Reports: None Social & Family History - Family History Family Medical History: Noncontributory - Tobacco Use Smoking Status *Q: Former Smoker Years of Tobacco use: 32 Packs/Tins Daily: 1 Used Tobacco, but Quit: Yes Month/Year Tobacco Last Used: March 2018 Second Hand Smoke Exposure: No - Caffeine Use Caffeine Use: Reports: None - Recreational Drug Use Recreational Drug Use: No H&P Review of Systems - Review of Systems: Review Of Systems: See Below General: Reports: No Symptoms HEENT: Reports: Headaches (chronic migraines. ) Pulmonary: Reports: No Symptoms Cardiovascular: Reports: No Symptoms Gastrointestinal: Reports: Difficulty Swallowing Genitourinary: Reports: No Symptoms Musculoskeletal: Reports: No Symptoms Skin: Reports: No Symptoms Psychiatric: Reports: No Symptoms Neurological: Reports: No Symptoms Hematologic/Lymphatic: Reports: No Symptoms Immunologic: Reports: No Symptoms Exam - Exam Exam: See Below - Vital Signs Vital Signs: Last Vital Signs Temp 97.0 F 08/13/18 07:00 Pulse 63 08/13/18 07:00 Resp 16 08/13/18 07:00 BP 96/50 L 08/13/18 07:00 Pulse Ox 94 L 08/13/18 07:00 Weight: 487 lb 3.545 oz - Exam Quality Assessment: Supplemental Oxygen General: Alert, Oriented, Cooperative, Mild Distress HEENT: PERRLA Neck: Supple Lungs: Clear to Auscultation, Normal Respiratory Effort Cardiovascular: Regular Rate, Regular Rhythm GI/Abdominal Exam: Soft, Non-Tender (Female) Exam: Deferred Rectal (Female) Exam: Deferred Back Exam: Normal Inspection Extremities: Normal Inspection Neurological: Cranial Nerves Intact, Reflexes Equal Bilateral Neuro Extensive - Mental Status: Alert, Oriented x3, Normal Mood/Affect Neuro Extensive - Motor, Sensory, Reflexes: CN II-XII Intact, Normal Gait, Normal Reflexes Psychiatric: Alert, Normal Affect, Normal Mood - Patient Data Lab Results Last 24 hrs: Laboratory Results - last 24 hr 08/12/18 08/12/18 08/12/18 Range/Units 14:43 14:43 14:43 WBC 11.0 (4.5-11.0) K/uL RBC 4.64 (3.30-5.50) M/uL Hgb 13.3 (12.0-15.0) g/dL Hct 41.4 (36.0-48.0) % MCV 89 (80-98) fL MCH 29 (27-31) pg MCHC 32 (32-36) % Plt Count 311 (150-400) K/uL Neut % (Auto) 70 H (36-66) % Lymph % (Auto) 20 L (24-44) % Teton % (Auto) 6 (2-6) % Eos % (Auto) 3 (2-4) % Baso % (Auto) 1 (0-1) % Sodium 138 L (140-148) mmol/L Potassium 4.1 (3.6-5.2) mmol/L Chloride 101 (100-108) mmol/L Carbon Dioxide 28 (21-32) mmol/L Anion Gap 13.1 (5.0-14.0) mmol/L BUN 20 H (7-18) mg/dL Creatinine 1.1 H (0.6-1.0) mg/dL Est Cr Clr Drug Dosing 51.74 mL/min Estimated GFR (MDRD) 53 L (>60) Glucose 140 H (74-106) mg/dL Lactic Acid 1.2 (0.4-2.0) mmol/L Calcium 10.0 (8.5-10.1) mg/dL Total Bilirubin 0.2 D (0.2-1.0) mg/dL AST 35 D (15-37) U/L ALT 81 H (12-78) U/L Alkaline Phosphatase 87 D (46-116) U/L Troponin I (0.000-0.056) ng/mL Total Protein 7.9 (6.4-8.2) g/dL Albumin 4.0 (3.4-5.0) g/dL Globulin 3.9 H (2.3-3.5) g/dL Albumin/Globulin Ratio 1.0 L (1.2-2.2) 08/12/18 Range/Units 14:43 WBC (4.5-11.0) K/uL RBC (3.30-5.50) M/uL Hgb (12.0-15.0) g/dL Hct (36.0-48.0) % MCV (80-98) fL MCH (27-31) pg MCHC (32-36) % Plt Count (150-400) K/uL Neut % (Auto) (36-66) % Lymph % (Auto) (24-44) % Teton % (Auto) (2-6) % Eos % (Auto) (2-4) % Baso % (Auto) (0-1) % Sodium (140-148) mmol/L Potassium (3.6-5.2) mmol/L Chloride (100-108) mmol/L Carbon Dioxide (21-32) mmol/L Anion Gap (5.0-14.0) mmol/L BUN (7-18) mg/dL Creatinine (0.6-1.0) mg/dL Est Cr Clr Drug Dosing mL/min Estimated GFR (MDRD) (>60) Glucose (74-106) mg/dL Lactic Acid (0.4-2.0) mmol/L Calcium (8.5-10.1) mg/dL Total Bilirubin (0.2-1.0) mg/dL AST (15-37) U/L ALT (12-78) U/L Alkaline Phosphatase (46-116) U/L Troponin I < 0.017 (0.000-0.056) ng/mL Total Protein (6.4-8.2) g/dL Albumin (3.4-5.0) g/dL Globulin (2.3-3.5) g/dL Albumin/Globulin Ratio (1.2-2.2) Result Diagrams: 08/12/18 14:43 08/12/18 14:43 Problem List Initiated/Reviewed/Updated: Yes Orders Last 24hrs: Active Orders 24 hr Category Date Time Status Patient Status [ADT] Routine ADT 08/12/18 14:35 Active Height and Weight [RC] DAILY Care 08/12/18 14:35 Active Intake and Output [RC] PER UNIT ROUTINE Care 08/12/18 14:38 Active Up ad Tatum [RC] ASDIRECTED Care 08/12/18 14:35 Active Verify Patient Consent Obtain [RC] ASDIRECTED Care 08/13/18 07:00 Active Vital Signs [RC] Q4H Care 08/12/18 14:35 Active NPO Now [Nothing per Oral Now Diet] [DIET] Diet 08/12/18 Dinner Active Calcium Carbonate [Tums] Med 08/12/18 18:28 Active 500 mg PO Q2H PRN Citalopram [Celexa] Med 08/13/18 09:00 Active 40 mg PO DAILY Ketorolac [Toradol] Med 08/13/18 07:30 Once 60 mg IM ONETIME ONE MVI, Adult with Vitamin K [Infuvite Adult] 10 ml Med 08/13/18 09:30 Active Thiamine [Vitamin B-1] 200 mg Chromium/Copper/Dre/Selen/Zn [Multitrace-5 Concentrate ] 1 ml Lactated Ringers [Ringers, Lactated] 1,000 ml IV ONETIME Ondansetron [Zofran] Med 08/12/18 14:38 Active 4 mg IVPUSH Q8H PRN Pantoprazole [ProTONIX] Med 08/12/18 14:39 Active 40 mg PO BEDTIME PRN SUMAtriptan Med 08/13/18 01:37 Active 100 mg PO BID PRN Sodium Chloride 0.9% [Saline Flush] Med 08/12/18 14:30 Active 10 ml FLUSH ASDIRECTED PRN Spironolactone [Aldactone] Med 08/13/18 09:00 Active 50 mg PO DAILY Zolpidem [Ambien] Med 08/12/18 21:00 Active 10 mg PO BEDTIME fentaNYL [Sublimaze] Med 08/12/18 18:27 Active 50 mcg IVPUSH Q2H PRN hydrOXYzine HCl [Vistaril] Med 08/13/18 07:04 Active 100 mg IM Q4H PRN Peripheral IV Insertion Adult [OM.PC] Urgent Oth 08/12/18 14:30 Ordered Resuscitation Status Routine Resus Stat 08/12/18 14:35 Ordered Medication Orders Calcium Carbonate/Glycine (Tums) 500 mg PO Q2H PRN PRN Reason: Indigestion Last Admin: 08/12/18 22:26 Dose: 500 mg Admin: 08/12/18 18:43 Dose: 500 mg Citalopram Hydrobromide (Celexa) 40 mg PO DAILY RICHARD Fentanyl (Sublimaze) 50 mcg IVPUSH Q2H PRN PRN Reason: Pain (severe 7-10) Last Admin: 08/13/18 04:25 Dose: 50 mcg Admin: 08/13/18 02:20 Dose: 50 mcg Admin: 08/13/18 00:12 Dose: 50 mcg Admin: 08/12/18 22:26 Dose: 50 mcg Admin: 08/12/18 18:44 Dose: 50 mcg Hydroxyzine HCl (Vistaril) 100 mg IM Q4H PRN PRN Reason: pain Multivitamins/Minerals 10 ml/Thiamine HCl 200 mg/ Chromium/Copper/Manganese/ Seleni/Zn 1 ml/ Lactated Ringer's 1,013 mls @ 333.651 mls/hr IV ONETIME ONE Stop: 08/13/18 12:32 Ketorolac Tromethamine (Toradol) 60 mg IM ONETIME ONE Stop: 08/13/18 07:31 Ondansetron HCl (Zofran) 4 mg IVPUSH Q8H PRN PRN Reason: Nausea/Vomiting Pantoprazole Sodium (Protonix) 40 mg PO BEDTIME PRN PRN Reason: Abdominal Pain Sodium Chloride (Saline Flush) 10 ml FLUSH ASDIRECTED PRN PRN Reason: Keep Vein Open Spironolactone (Aldactone) 50 mg PO DAILY RICHARD Sumatriptan Succinate (Sumatriptan) 100 mg PO BID PRN PRN Reason: Headache Zolpidem Tartrate (Ambien) 10 mg PO BEDTIME RICHARD Last Admin: 08/12/18 22:03 Dose: 10 mg Assessment/Plan Comment:: Assessment: Dysphagia SP RNY Gastric Bypass Surgery Chronic Migraine Headaches Plan: See copy of orders in EMR> EGD with possible Dilation - IV and Local Sedation - Robinul 0.4 mg 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 Aurelio Willis MD NPO Will be discharged after procedure. Caprice Denton
[2018-08-13] MEDS ORDERED: Citalopram 20 MG Tab PO SCH (09:00)
[2018-08-13] MEDS ORDERED: Spironolactone 25 MG Tab PO SCH (09:00)
[2018-08-13] MEDS ORDERED: MVI, Adult with Vitamin K 10 ML, Thiamine 200 MG, Chromium/Copper/Mang/Selen/Zn 1 ML in... IV ONE ×4 (09:30)
[2018-08-13] MEDS ORDERED: Propofol 200 MG/20 ML SDV ONE (09:42)
[2018-08-13] MEDS ORDERED: Midazolam 1 MG/ML 2 ML SDV ONE (09:42)
[2018-08-13] MEDS ORDERED: Pantoprazole 40 MG Vial IVPUSH ONE (11:11)
[2018-08-13 13:30] VITALS: BP 102/67
[2018-08-13] MEDS ORDERED: Alum Hydrox/Mag Hydrox/Simeth 360 ML, Lidocaine 2% 60 ML PO SCH ×2 (16:00)
--- NOTE | 2018-08-15 16:09 | OR ---
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 POSTOPERATIVE DIAGNOSIS: Mild stricturing of gastrojejunostomy with a more substantial component of anastomotic edema. OPERATIVE PROCEDURE: Upper gastrointestinal endoscopy with dilation of gastrojejunostomy (23060). ANESTHESIA: IV sedation. INDICATIONS FOR PROCEDURE: This is a 48-year-old, roughly 3 weeks status post a [place]-en-Y gastric bypass, presenting with dehydration and discomfort along with dysphagia suggestive of a stricture at gastrojejunostomy. She is admitted as an observation patient overnight and is undergoing upper GI endoscopy with dilation as indicated this morning. Potential risks including bleeding and perforation were discussed, and the patient wishes to proceed. DETAILS OF PROCEDURE: The patient was taken to the operating room, placed in a left lateral decubitus position. IV sedation was administered after which the upper GI endoscope was passed orally through the length of esophagus and into the gastric pouch. The 1 cm scope could be passed through the anastomosis. There was some stricturing, but more in the way of edema. Bard gastrointestinal balloon catheter was then centered across the anastomosis and inflated to 30-Macedonian size. This did result in a slight increase in the diameter of the anastomosis. No complications were evident. The scope was then withdrawn. The procedure then concluded. The patient will be started on Protonix, giving this for a month to try to minimize any gastric acid exposure at the anastomosis. The patient will be discharged home later today. Aurelio Willis MD /[id number]
--- NOTE | 2018-08-16 09:25 | DISCH ---
FINAL DIAGNOSES: 1. Dysphagia, dehydration, and mild stricturing and edema at the gastrojejunostomy. 2. Status post [place]-en-Y gastric bypass. OPERATIVE PROCEDURE: Upper GI endoscopy with dilation of gastrojejunostomy that was done on 08/13/18. SUMMARY: This is a 48-year-old 3 weeks status post [place]-en-Y gastric bypass presenting with epigastric pain, dysphagia, and a picture of dehydration, suggestive of stricturing at her recently constructed gastrojejunostomy. Following admission, the patient was taken to the operating room and underwent upper endoscopy. There was some mild stricturing in the anastomosis with the scope being able to be passed through it initially. There was more in the way of edema there. It was dilated up with the 30-Kiswahili to increase the diameter somewhat further, and the patient tolerated the procedure well. The patient was sent home on Protonix 40 mg daily for a month. I will also give the patient 2 ounces of xylocaine and 12 ounces of Maalox mix, to swallow prior to eating. Keep her on step-2 diet for the next 5 days and advance as tolerated. She is scheduled for followup with Caprice Valadez in [facility] on 08/22/2018, and she will be otherwise instructed to continue with her present medications.
== END 2018-08-13 14:30 | disposition home or self-care (01) ==
LOC: JP.ED 12:32 → JP.MS 14:35
PROVIDERS: ADMIT Surgery; ATTEND Surgery
DX: K95.89 Other complications of other bariatric procedure (principal); E86.0 Dehydration; R13.10 Dysphagia, unspecified; E11.9 Type 2 diabetes mellitus without complications; G43.909 Migraine, unspecified, not intractable, without status migrainosus; Z88.1 Allergy status to other antibiotic agents; Z88.5 Allergy status to narcotic agent; Z88.0 Allergy status to penicillin; Z91.048 Other nonmedicinal substance allergy status; Z87.891 Personal history of nicotine dependence; Z79.899 Other long term (current) drug therapy
CPT/HCPCS: 36415; 43245; 80053; 83605; 84484; 85025; 99284; A9270; C9113; J1885; J2250; J2405; J2704; J3010; J3410; J3411; J7120

== ENCOUNTER 2018-11-19 16:47 | Emergency (ER) | payer BC ==
[2018-11-19 17:50] VITALS: BP 113/70; PULSE 69
[2018-11-19] MEDS ORDERED: Alum Hydrox/Mag Hydrox/Simeth 15 ML, Lidocaine 2% 15 ML PO ONE ×2 (18:32)
--- NOTE | 2018-11-19 18:37 | EDM.PDOC ---
ED HPI GENERAL MEDICAL PROBLEM - General Chief Complaint: Abdominal Pain Stated Complaint: SEVERE ABD PAIN/GASTRIC BYPASS 07/24 Time Seen by Provider: 11/19/18 18:18 Source of Information: Reports: Patient, Family, RN Notes Reviewed History Limitations: Reports: No Limitations - History of Present Illness INITIAL COMMENTS - FREE TEXT/NARRATIVE: 48-year-old female presents to the emergency department today complaint of abdominal pain epigastric region she does have a history of gastric bypass states the pain has been ongoing for the last 3 days she has been taking her omeprazole recently underwent EGD and July of this year which showed gastritis also of note she has a 1 cm lesion on her thyroid suspicious for malignancy and is scheduled for resection November, she continues to complain of difficulty swallowing Epigastric Pain Score (Numeric/FACES): 9 - Related Data Allergies Allergy/AdvReac Type Severity Reaction Status Date / Time cephalexin monohydrate Allergy Rash Verified 08/12/18 14:10 [From Keflex] fentanyl Allergy Headache Verified 11/19/18 17:54 Latex, Natural Rubber Allergy Rash Verified 08/12/18 14:10 morphine Allergy Rash Verified 08/12/18 14:10 Penicillins Allergy Hives Verified 08/12/18 14:10 tape Allergy Rash Uncoded 08/12/18 14:10 Home Meds: Home Meds Citalopram [Citalopram HBr] 40 mg PO DAILY 05/14/13 [History] Spironolactone [Aldactone] 50 mg PO DAILY 05/14/13 [History] Triamcinolone Acetonide [Triamcinolone Acetonide 0.5%] 1 applic TOP DAILY PRN [History] Zolpidem Tartrate 10 mg PO BEDTIME 05/24/18 [History] Omeprazole 40 mg PO BEDTIME PRN #30 cap.sr 07/26/18 [Rx] Pantoprazole Sodium [Protonix] 40 mg PO DAILY 30 Days suspdr.pkt 08/13/18 [Rx] Varenicline [Chantix] 1 mg PO BIDPC 11/19/18 [History] Past Medical History HEENT History: Reports: Other (See Below) Other HEENT History: mass left side of face. "tubes in my ears" that have fallen out Cardiovascular History: Reports: Other (See Below) Other Cardiovascular History: born with enlarged heart Respiratory History: Reports: Sleep Apnea Gastrointestinal History: Reports: Gastritis Genitourinary History: Reports: Other (See Below) Other Genitourinary History: May 2011 hospitalized for kidney infection [employer] History: Reports: Polycystic Ovaries, Musculoskeletal History: Reports: Arthritis Neurological History: Reports: Migraines Other Neuro History: pinched right sciatic nerve Psychiatric History: Reports: Depression Endocrine/Metabolic History: Reports: Diabetes, Type II, Obesity/BMI 30+ Immunologic History: Reports: None Oncologic (Cancer) History: Reports: Other (See Below) Other Oncologic History: benign tumors removed from bilat neck - Infectious Disease History Infectious Disease History: Reports: Chicken Pox - Past Surgical History Cardiovascular Surgical History: Reports: None Respiratory Surgical History: Reports: None GI Surgical History: Reports: Appendectomy, Bariatric Procedure, Cholecystectomy , EGD Other GI Surgeries/Procedures: status post rny 07/24/18 Female Surgical History: Reports: Section, Hysterectomy, Salpingo- Oophorectomy Endocrine Surgical History: Reports: None Neurological Surgical History: Reports: None Musculoskeletal Surgical History: Reports: Carpal Tunnel Oncologic Surgical History: Reports: None Dermatological Surgical History: Reports: None Social & Family History - Family History Family Medical History: Noncontributory - Tobacco Use Smoking Status *Q: Former Smoker Used Tobacco, but Quit: Yes Month/Year Tobacco Last Used: march 2018 - Caffeine Use Caffeine Use: Reports: None - Recreational Drug Use Recreational Drug Use: No ED ROS GENERAL - Review of Systems Review Of Systems: See Below Constitutional: Reports: No Symptoms HEENT: Reports: No Symptoms Respiratory: Reports: No Symptoms Cardiovascular: Reports: No Symptoms GI/Abdominal: Reports: Abdominal Pain, Difficulty Swallowing. Denies: Nausea, Vomiting : Reports: No Symptoms Musculoskeletal: Reports: No Symptoms ED EXAM, GI/ABD - Physical Exam Exam: See Below Exam Limited By: No Limitations General Appearance: Alert, WD/WN, No Apparent Distress Neck: Normal Inspection, Full Range of Motion, Thyromegaly. No: Lymphadenopathy (R), Lymphadenopathy (L), Tender Lateral, Tender Midline Respiratory/Chest: No Respiratory Distress, Lungs Clear, Normal Breath Sounds, No Accessory Muscle Use Cardiovascular: Regular Rate, Rhythm, No Murmur Course - Vital Signs Last Recorded V/S: Last Vital Signs Temp 97.7 F 11/19/18 17:56 Pulse 69 11/19/18 17:56 Resp 19 11/19/18 17:56 BP 113/70 11/19/18 17:56 Pulse Ox 95 11/19/18 17:56 - Orders/Labs/Meds Labs: Laboratory Tests 11/19/18 11/19/18 11/19/18 Range/Units 18:43 18:43 18:43 WBC 10.1 (4.5-11.0) K/uL RBC 4.54 (3.30-5.50) M/uL Hgb 13.1 (12.0-15.0) g/dL Hct 39.5 (36.0-48.0) % MCV 87 (80-98) fL MCH 29 (27-31) pg MCHC 33 (32-36) % Plt Count 230 (150-400) K/uL Neut % (Auto) 49 (36-66) % Lymph % (Auto) 40 (24-44) % Wells % (Auto) 9 H (2-6) % Eos % (Auto) 2 (2-4) % Baso % (Auto) 1 (0-1) % Sodium 141 (140-148) mmol/L Potassium 3.9 (3.6-5.2) mmol/L Chloride 103 (100-108) mmol/L Carbon Dioxide 29 (21-32) mmol/L Anion Gap 9.3 (5.0-14.0) mmol/L BUN 14 (7-18) mg/dL Creatinine 0.9 (0.6-1.0) mg/dL Est Cr Clr Drug Dosing 60.46 mL/min Estimated GFR (MDRD) > 60 (>60) Glucose 90 (74-106) mg/dL Lactic Acid 0.6 (0.4-2.0) mmol/L Calcium 9.3 (8.5-10.1) mg/dL Total Bilirubin 0.2 (0.2-1.0) mg/dL AST 19 (15-37) U/L ALT 46 (12-78) U/L Alkaline Phosphatase 107 (46-116) U/L Troponin I < 0.017 (0.000-0.056) ng/mL Total Protein 7.2 (6.4-8.2) g/dL Albumin 3.7 (3.4-5.0) g/dL Globulin 3.5 (2.3-3.5) g/dL Albumin/Globulin Ratio 1.1 L (1.2-2.2) Lipase 244 (73-393) U/L Urine Color Urine Appearance Urine pH (4.5-8.0) Ur Specific [place] (1.008-1.030) Urine Protein (NEGATIVE) mg/dL Urine Glucose (UA) (NEGATIVE) mg/dL Urine Ketones (NEGATIVE) mg/dL Urine Occult Blood (NEGATIVE) Urine Nitrite (NEGATIVE) Urine Bilirubin (NEGATIVE) Urine Urobilinogen (NORMAL) mg/dL Ur Leukocyte Esterase (NEGATIVE) Urine RBC (0-5) Urine WBC (0-5) Ur Epithelial Cells Amorphous Sediment Urine Bacteria Urine Mucus 11/19/18 Range/Units 19:37 WBC (4.5-11.0) K/uL RBC (3.30-5.50) M/uL Hgb (12.0-15.0) g/dL Hct (36.0-48.0) % MCV (80-98) fL MCH (27-31) pg MCHC (32-36) % Plt Count (150-400) K/uL Neut % (Auto) (36-66) % Lymph % (Auto) (24-44) % Wells % (Auto) (2-6) % Eos % (Auto) (2-4) % Baso % (Auto) (0-1) % Sodium (140-148) mmol/L Potassium (3.6-5.2) mmol/L Chloride (100-108) mmol/L Carbon Dioxide (21-32) mmol/L Anion Gap (5.0-14.0) mmol/L BUN (7-18) mg/dL Creatinine (0.6-1.0) mg/dL Est Cr Clr Drug Dosing mL/min Estimated GFR (MDRD) (>60) Glucose (74-106) mg/dL Lactic Acid (0.4-2.0) mmol/L Calcium (8.5-10.1) mg/dL Total Bilirubin (0.2-1.0) mg/dL AST (15-37) U/L ALT (12-78) U/L Alkaline Phosphatase (46-116) U/L Troponin I (0.000-0.056) ng/mL Total Protein (6.4-8.2) g/dL Albumin (3.4-5.0) g/dL Globulin (2.3-3.5) g/dL Albumin/Globulin Ratio (1.2-2.2) Lipase (73-393) U/L Urine Color Yellow Urine Appearance Cloudy Urine pH 5.0 (4.5-8.0) Ur Specific [place] 1.010 (1.008-1.030) Urine Protein Negative (NEGATIVE) mg/dL Urine Glucose (UA) Normal (NEGATIVE) mg/dL Urine Ketones Negative (NEGATIVE) mg/dL Urine Occult Blood Negative (NEGATIVE) Urine Nitrite Negative (NEGATIVE) Urine Bilirubin Negative (NEGATIVE) Urine Urobilinogen Normal (NORMAL) mg/dL Ur Leukocyte Esterase Moderate (NEGATIVE) Urine RBC 0-5 (0-5) Urine WBC 5-10 H (0-5) Ur Epithelial Cells Rare Amorphous Sediment Not seen Urine Bacteria Rare Urine Mucus Not seen Meds: Medications Discontinued Medications Generic Name Dose Route Start Last Admin Trade Name Freq PRN Reason Stop Dose Admin Al Hydroxide/Mg Hydroxide 15 0 ml 11/19/18 18:32 11/19/18 18:38 ml/ Lidocaine HCl 15 ml PO 11/19/18 18:33 15 ml ONETIME ONE Administration Hydromorphone HCl 1 mg 11/19/18 21:00 11/19/18 21:01 Dilaudid IM 11/19/18 21:01 1 mg ONETIME ONE Administration Ketorolac Tromethamine 60 mg 11/19/18 19:52 11/19/18 19:57 Toradol IM 11/19/18 19:53 60 mg ONETIME ONE Administration Departure - Departure Time of Disposition: 21:45 Disposition: Home, Self-Care 01 Condition: Fair Clinical Impression: Epigastric abdominal pain - Discharge Information Referrals: Yue Vuong MD [Primary Care Provider] - Forms: ED Department Discharge Additional Instructions: Use the hydrocodone as needed for pain control, if your pain returns please contact Dr. Willis at the clinic in the morning for further evaluation, call or return to the emergency department worsening of symptoms - Assessment/Plan Plan: Assessment Acuity = acute Site and laterality = epigastric abdominal pain complicated patient known history gastric bypass Etiology = unclear etiology Manifestations = none Location of injury = Home Lab values = CBC, CMP, lactic acid, urinalysis within normal limits Plan She had no relief from GI cocktail for Toradol did get relief from Dilaudid she declines any further workup recently had EGD done in the past back in July I did called discussed case with Dr. Willis at 21:40 he is aware she will be discharged home hydrocodone 5/325 one tab by mouth 3 times a day when necessary total #10 and will follow-up with him in clinic if her pain returns This note was dictated using [employer] voice recognition software please call with any questions on syntax or grammar.
[2018-11-19] MEDS ORDERED: Ketorolac 60 MG/2 ML SDV IM ONE (19:52)
[2018-11-19] MEDS ORDERED: HYDROmorphone 1 MG/ML Syringe IVPUSH ONE (20:53)
[2018-11-19] MEDS ORDERED: HYDROmorphone 1 MG/ML Syringe IM ONE (21:00)
== END 2018-11-19 22:09 | disposition home or self-care (01) ==
LOC: JP.ED 16:47
DX: R10.13 Epigastric pain (principal); E11.9 Type 2 diabetes mellitus without complications; E66.9 Obesity, unspecified; M19.90 Unspecified osteoarthritis, unspecified site; Z98.84 Bariatric surgery status; Z88.0 Allergy status to penicillin; Z91.040 Latex allergy status; Z88.1 Allergy status to other antibiotic agents; Z88.5 Allergy status to narcotic agent; Z79.899 Other long term (current) drug therapy; Z90.49 Acquired absence of other specified parts of digestive tract; Z90.710 Acquired absence of both cervix and uterus; Z87.891 Personal history of nicotine dependence
CPT/HCPCS: 36415; 80053; 81001; 83605; 83690; 84484; 85025; 96372; 99284; A9270; J1170; J1885

== ENCOUNTER 2021-10-07 05:25 | Day surgery (SDC) | payer BC ==
[2021-10-07] MEDS ORDERED: Dextrose 5%-Lactated Ringers 1,000 ML IV SCH (05:45)
[2021-10-07] MEDS ORDERED: Propofol 200 MG/20 ML SDV ONE ×2 (06:46→07:37)
[2021-10-07] MEDS ORDERED: Midazolam 1 MG/ML 2 ML SDV ONE (06:46)
[2021-10-07] MEDS ORDERED: fentaNYL 100 MCG/2 ML SDV ONE (06:46)
[2021-10-07 09:06] VITALS: BP 102/43; PULSE 50
== END 2021-10-07 09:00 | disposition home or self-care (01) ==
LOC: JP.SDS 05:25
PROVIDERS: ATTEND Surgery
DX: Z12.11 Encounter for screening for malignant neoplasm of colon (principal); D12.8 Benign neoplasm of rectum; K64.9 Unspecified hemorrhoids; G47.33 Obstructive sleep apnea (adult) (pediatric); F17.200 Nicotine dependence, unspecified, uncomplicated; E11.9 Type 2 diabetes mellitus without complications; K21.9 Gastro-esophageal reflux disease without esophagitis
CPT/HCPCS: 88305; J2250; J2704; J3010; J7121

== ENCOUNTER 2023-02-12 17:51 | Emergency (ER) | payer BC ==
[2023-02-12] MEDS ORDERED: Ketorolac 30 MG/ML SDV IM ONE (18:40)
[2023-02-12 18:50] LABS: BASOPHILS ABSOLUTE AUTO 0.04 K/uL (0.00-0.10); BASOPHILS PERCENT AUTO 0.6 % (0.1-1.3); EOSINOPHILS ABSOLUTE AUTO 0.24 K/uL (0.00-0.40); EOSINOPHILS PERCENT AUTO 3.7 % (0.0-5.4); HEMATOCRIT 31.8 % (34.3-46.0); HEMOGLOBIN 10.7 g/dL (11.2-15.5); IMMATURE GRAN PERCENT AUTO 0.3 % (0.0-0.7); LYMPHOCYTES ABSOLUTE AUTO 2.04 K/uL (0.8-3.3); LYMPHOCYTES PERCENT AUTO 31.8 % (11.4-47.7); MEAN CORPUSCULAR HEMOGLOBIN 31.3 pg (31.6-35.5); MEAN CORPUSCULAR HGB CONC 33.6 g/dL (31.6-35.5); MONOCYTES ABSOLUTE AUTO 0.63 K/uL (0.20-0.90); MONOCYTES PERCENT AUTO 9.8 % (3.3-12.6); NEUTROPHILS ABSOLUTE AUTO 3.44 K/uL (1.0-7.6); NEUTROPHILS PERCENT AUTO 53.8 % (40.0-78.1); PLATELET COUNT,PLT 192 K/uL (130-375); RED BLOOD CELL COUNT 3.42 M/uL (3.77-5.24); WHITE BLOOD CELL COUNT,WBC 6.4 K/uL (3.2-11.0)
[2023-02-12 18:51] LABS: IMMATURE GRAN ABSOLUTE AUTO 0.02 K/uL (0.00-0.23)
[2023-02-12 19:21] VITALS: BP 95/44; PULSE 73
[2023-02-12] MEDS ORDERED: Dexamethasone 4 MG/ML SDV PO ONE (19:59)
[2023-02-12] MEDS ORDERED: HYDROmorphone 1 MG/ML Syringe IM ONE (19:59)
[2023-02-12] MEDS ORDERED: HYDROmorphone 2 MG Tab PO ONE (20:01)
== END 2023-02-12 20:22 | disposition home or self-care (01) ==
LOC: JP.ED 17:51
DX: G89.18 Other acute postprocedural pain (principal); M54.50 Low back pain, unspecified; E11.9 Type 2 diabetes mellitus without complications; E66.9 Obesity, unspecified; F17.210 Nicotine dependence, cigarettes, uncomplicated; Z68.28 Body mass index [BMI] 28.0-28.9, adult; Z88.1 Allergy status to other antibiotic agents; Z91.040 Latex allergy status; Z88.5 Allergy status to narcotic agent; Z88.0 Allergy status to penicillin; Z88.8 Allergy status to other drugs, medicaments and biological substances; Z79.899 Other long term (current) drug therapy
CPT/HCPCS: 36415; 85025; 86140; 96372; 99283; A9270; J1170; J1885; J8540